=== PATIENT | female | born 1955 | race Caucasian/White ===

== ENCOUNTER 2024-02-05 09:12 | Emergency (ER) | payer MEDICARE, SELFPAY ==
--- NOTE | ~2024-02-05 | XR_ITS ---
EXAMINATION: XR chest 2V DATE: 02/05/2024 12:01 INDICATION: Weakness. Lung cancer. Vomiting. Epigastric abdominal pain. TECHNIQUE: Frontal and lateral views of the chest were obtained on 3 radiographs. COMPARISON: CT abdomen and pelvis 02/05/2024 FINDINGS: There is a diffuse interstitial pattern in the lungs. There are nodules in the lower lobes. Right hilar lymphadenopathy is noted. No pleural effusion or pneumothorax. The heart size is normal. Surgical clips in the right upper quadrant are likely from cholecystectomy. There is a total right s houlder arthroplasty. IMPRESSION: 1. Pulmonary nodules and right hilar lymphadenopathy, consistent with metastatic disease. 2. Diffuse interstitial pattern in the lungs, consistent with chronic lung disease without or with mariscal perimposed mild pulmonary edema. Reviewed, dictated and finalized at location A. IMPRESSION: 1. Pulmonary nodules and right hilar lymphadenopathy, consistent with metastati c disease. 2. Diffuse interstitial pattern in the lungs, consistent with chronic lung dise ase without or with superimposed mild pulmonary edema.
--- NOTE | ~2024-02-05 | CT_ITS ---
EXAMINATION: CT abdomen pelvis w con DATE: 02/05/2024 10:21 INDICATION: Nausea and vomiting. Constipation. TECHNIQUE: Computed tomography (CT) of the abdomen and pelvis was performed with 100 mL Omnipaque 350 intravenous contrast. Automated exposure control and iterative reconstruction technique were employe d. The dose-length product was 186.81 mGy-cm. COMPARISON: None. FINDINGS: The visualized portions demonstrate widespread septal thickening with bronchiectasis and pe ripheral honeycombing. There are a few scattered nodules in the lungs measuring up to 2.3 cm in left lower lobe. No pleural effusion. The heart size is normal. No pericardial effusion. Right hilar lymph adenopathy is noted. There is a 5 mm cyst in the liver. There is mild intrahepatic biliary duct dilat ation. There are changes of cholecystectomy. The common duct measures 15 mm. The spleen, pancreas, an d adrenal glands are normal. There are cysts in the kidneys measuring up to 5.1 cm on the left. There is a 3.8 cm fusiform aneurysm of infrarenal aorta. There is calcified atherosclerosis of the aorta a nd many of the other arteries. There are no dilated loops of bowel. The appendix is normal. There are no pathologically enlarged lymph nodes. There is no free intraperitoneal fluid. There is severe lumb ar spondylosis. IMPRESSION: 1. Pulmonary nodules and right hilar lymphadenopathy, consistent with metastatic disease. 2. Chronic interstitial lung disease in a pattern of usual interstitial pneumonia (UIP). 3. 3.8 cm fusiform aneurysm of infrarenal aorta. 4. Intrahepatic and extrahepatic biliary duct dilatation status post cholecystectomy. Correlate with liver function tests to determine if this finding is clinically significant. Reviewed, dictated and finalized at location A. IMPRESSION: 1. Pulmonary nodules and right hilar lymphadenopathy, consistent with metastati c disease. 2. Chronic interstitial lung disease in a pattern of usual interstitial pneumon ia (UIP). 3. 3.8 cm fusiform aneurysm of infrarenal aorta. 4. Intrahepatic and extrahepatic biliary duct dilatation status post cholecyste ctomy. Correlate with liver function tests to determine if this finding is clin ically significant.
[2024-02-05 09:17] VITALS: BP 186/98; PULSE 99; RESP 21; TEMP 36.5; O2SAT 97
--- NOTE | 2024-02-05 09:22 | ED.NAVMDI ---
HPI - Nausea/Vomiting/Diarrhea General Chief complaint: Nausea/Vomiting/Diarrhea Stated complaint: N/V constipation Time Seen by Provider: 02/05/24 09:16 Source: patient Mode of arrival: ambulatory Limitations: no limitations History of Present Illness HPI Narrative: Patient is a 68 y/o female who presents to the ED with c/o N/V. Patient is from [place] and currently in the area visiting family. 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 Reports having episodes of N/V intermittently over the last few weeks, has required multiple ED visits for rehydration/ IV fluids. Reports she began vomiting last night has been unable to keep down any food or drink. Feels very weak and dehydrated. Feels nauseous currently. Reports diffuse abdominal pain. Also reports constipation for the last 10 days. Denies fevers, urinary complaints, shortness breath, chest pain. Related Data Allergies Allergy/AdvReac Type Severity Reaction Status Date / Time No Known Allergies Allergy Verified 02/05/24 09:32 Review of Systems Review of Systems: All systems reviewed & are unremarkable except as noted in HPI. All systems reviewed & are unremarkable except as noted in HPI and below PMFSH Past Medical History Medical History (Updated 02/05/24 @ 12:53 by Serene Falcon PA-C) Small cell lung cancer Exam Narrative: GENERAL: Elderly, thin, frail, non-toxic, in no acute distress. HEAD: Normocephalic, atraumatic. RESPIRATORY: Airway patent, respirations nonlabored. Rhonchi throughout left lower lung zone, occasional wheezing. CARDIOVASCULAR: Borderline tachycardic with regular rhythm without murmurs, rubs, or gallops. ABDOMINAL: Soft, mild diffuse tenderness, nondistended. Mildly hypoactive BS. MUSCULOSKELETAL: Moves all extremities. No gross deformities. SKIN: Warm, dry, normal color. NEURO: A&O X3. Speech clear. Cranial nerves II-XII grossly intact. Steady gait. No ataxic movements. PSYCHIATRIC: Appropriate mood and affect. Normal interaction. Course Vital Signs Vital signs: Vital Signs Temperature 97.7 F 02/05/24 09:17 Pulse Rate 99 02/05/24 09:17 Respiratory Rate 21 H 02/05/24 09:17 Blood Pressure 186/98 H 02/05/24 09:17 Pulse Oximetry 97 02/05/24 09:17 Oxygen Delivery Room Air 02/05/24 09:17 Temperature 97.7 F 02/05/24 09:17 Pulse Rate 86 02/05/24 13:27 Respiratory Rate 17 02/05/24 13:27 Blood Pressure 187/98 H 02/05/24 13:27 Pulse Oximetry 98 02/05/24 13:27 Oxygen Delivery Room Air 02/05/24 09:17 MDM - Nausea/Vomiting/Diarrhea MDM Narrative Medical decision making narrative: Patient presented to ED with nausea, vomiting, several day history of constipation. Recent diagnosis of small-cell lung cancer. Patient borderline tachycardic upon arrival, does appear very weak and frail on exam. She is afebrile. Fluids and Zofran initiated. Basic laboratory studies without leukocytosis or anemia. CMP with sodium 133, potassium 3.2. IV replacement ordered. Magnesium borderline at 1.7. Replacement ordered for this as well. Normal bicarb. Normal anion gap. Stable kidney function. Lactic acid within normal limits at 1.2. Normal LFTs and lipase. UA is clear. No signs of infection or dehydration. CT scan of abdomen/pelvis showing pulmonary nodules, small fusiform aortic aneurysm, mild intrahepatic and extrahepatic biliary duct dilation. Patient is status post cholecystectomy. Liver enzymes and bilirubin are within normal range. Low suspicion for choledocholithiasis. Patient is aware of aneurysm and pulmonary nodules, already following with vascular surgery. No comment on constipation on imaging. Personal review of images does contain a mild amount of stool throughout colon. Suspect decreased p.o. intake/ appetite to be contributing to constipation.
--- NOTE | 2024-02-05 09:23 | ECG_ITS ---
Test Date: 2024-02-05 09:26:14 Measurements Intervals [place] Rate: 95 P: 50 [place]: 202 QRS: -54 QRSD: 106 T: 16 QT: 368 QTc: 464 Interpretive Statements SINUS RHYTHM LEFT ANTERIOR FASCICULAR BLOCK [QRS AXIS <= -45, QR IN I, RS IN II] LEFT VENTRICULAR HYPERTROPHY AND ST-T CHANGE [VOLTAGE CRITERIA PLUS ST/T ABNORMALITY] POOR R-WAVE PROGRESSION ABNORMAL ELECTROCARDIOGRAM No previous ECG available for comparison Electronically Signed On 02-05-2024 12:33:38 CDT by Greg Messina M.D.
[2024-02-05] MEDS: SODIUM CHLORIDE 0.9% IV 1,000 ML 999 ML IV CONT ×2 (09:39→10:44)
[2024-02-05] MEDS: ONDANSETRON INJ 4 MG/2 ML VIAL IV PUSH (09:39)
[2024-02-05] MEDS: Please add drug allergy info to patient profile. 1 EACH XX (09:39)
--- NOTE | 2024-02-05 09:46 | PC.NURSE ---
pt made aware that we need a urine specimen. pt states she will hit her call herrmann when she can go.
[2024-02-05 09:56] LABS: Basophils Percent Auto 0.3 % (0.2-1.2); Eosinophils Absolute Auto 0.1 K/mm3 (0-0.3); Hematocrit 40.1 % (37.0-47.0); Hemoglobin 13.6 g/dL (12.0-15.0); Immature Granulocyte Absolute 0.02 K/mm3 (0.00-0.031); Immature Granulocyte Percent A 0.3 % (0-0.5); Lymphocytes Absolute Auto 1.58 K/mm3 (0.9-3.2); Lymphocytes Percent Auto 22.8 % (18.3-44.2); Mean Corpuscular HGB Conc 33.9 g/dl (32-36); Mean Corpuscular Hemoglobin 31.8 pg (26-34); Mean Corpuscular Volume 93.7 fl (80-100); Mean Platelet Volume 9.8 fl (7.4-10.4); Monocytes Absolute Auto 0.7 K/mm3 (0.1-0.6); Monocytes Percent Auto 10.5 % (2.6-8.5); Neutrophils Absolute Auto 4.5 K/mm3 (1.3-6.7); Neutrophils Percent Auto 64.1 % (45.5-73.1); Platelet Count Result 236 k/mm3 (150-375); Red Blood Count 4.28 M/mm3 (4.2-5.4); Red Cell Distribution Width 12.9 % (11.5-14.5); White Blood Count 6.9 K/mm3 (4.5-10.0)
[2024-02-05 10:02] LABS: Alanine Aminotransferase 18 U/L (6-35); Albumin Level 3.8 g/dL (3.5-5.1); Alkaline Phosphatase 133 U/L (38-126); Anion Gap 9 mmol/L (4-12); Aspartate Amino Transferase 36 U/L (14-36); Bilirubin,Total 0.8 mg/dL (0.2-1.3); Blood Urea Nitrogen 22 mg/dL (7-17); Calcium 8.9 mg/dL (8.4-10.2); Carbon Dioxide 30 mmol/L (22-30); Chloride 94 mmol/L (98-107); Estimated CRCL calculation 44 ml/min; Estimated Glomerular Filt Rate > 60; Glucose 104 mg/dL (65-110); Lactic Acid Reflex 1.2 mmol/L (0.7-2.0); Lipase 140 U/L (23-300); Magnesium 1.7 mg/dL (1.6-2.3); Potassium 3.2 mmol/L (3.4-5.0); Sodium 133 mmol/L (137-145)
[2024-02-05 10:44] LABS: Add Urine Microscopic? NO; Appearance Urine Clear (Clear); Bilirubin Urine Negative (Negative); Blood Urine Negative (Negative); Color Urine Yellow (Yellow); Glucose Urine UA Negative (Negative); Ketones Urine Negative (Negative); Leukocyte Esterase Ur Negative LEU/UL (Negative); Nitrate Urine Negative (Negative); Protein Urine Negative (Negative); Specific Grav Ur 1.024 (1.001-1.035); Urobilinogen Urine 0.2 mg/dL (<2.0)
[2024-02-05] MEDS: MAGNESIUM SULF 2 GM/WATER 50ML 2 GM/50 ML BAG IVPB (10:44)
[2024-02-05] MEDS: KCL 20 MEQ/SW 100 ML 100 ML 50 MEQ IVPB (10:51)
[2024-02-05 10:54] VITALS: BP 175/95; PULSE 82; RESP 21; O2SAT 99
[2024-02-05] MEDS: SODIUM CHLORIDE 0.9% IV 100 ML 20 ML (12:06)
[2024-02-05 12:07] VITALS: BP 154/93; PULSE 90; RESP 22; O2SAT 95
--- NOTE | 2024-02-05 12:07 | PC.NURSE ---
pt stated her IV was burning with the KCL. Started IV fluids for comfort.
--- NOTE | 2024-02-05 12:20 | PC.NURSE ---
verbal order to stop IV KCL. pt complains of burning.
[2024-02-05 12:59] VITALS: BP 187/98; PULSE 91; RESP 19; O2SAT 93
[2024-02-05] MEDS: POTASSIUM CHLORIDE 20 MEQ ER TABLET PO (13:03)
[2024-02-05 13:27] VITALS: BP 187/98; PULSE 86; RESP 17; O2SAT 98
== END 2024-02-05 13:29 | disposition home or self-care (01) ==
PROVIDERS: Emergency Provider Physician Assistant
DX: R11.2 Nausea with vomiting, unspecified (principal); C34.90 Malignant neoplasm of unspecified part of unspecified bronchus or lung; R53.1 Weakness; E87.6 Hypokalemia; E83.42 Hypomagnesemia; I71.43 Infrarenal abdominal aortic aneurysm, without rupture; J84.9 Interstitial pulmonary disease, unspecified; Z90.49 Acquired absence of other specified parts of digestive tract; R91.8 Other nonspecific abnormal finding of lung field; I44.4 Left anterior fascicular block; I51.7 Cardiomegaly
CPT/HCPCS: 36415; 71046; 74177; 80053; 81003; 83605; 83690; 83735; 85025; 93005; 96361; 96365; 96367; 96375; 99284; A9270; J2405; J3475; J3480; J7030; Q9967